=== PATIENT | female | born 1940 | race Caucasian/White ===

== ENCOUNTER → 2017-02-21 | Outpatient (CLI) | payer BC ==
[~2017-02-21] MED LIST: ALEN70TA2 PO; AMIT10TA6 PO; ASPI81TA21 PO; CELE100C PO; PHENADOZ; PRIM50TA29; VANC1INJ10 IV; ZINC GLUCONATE PO; [UNRECOGNIZED DRUG - CODE] PO
--- NOTE | 2017-02-22 12:52 | MAMMOGRAPHY REPORT ---
BILATERAL DIGITAL SCREENING MAMMOGRAM WITH CAD: 02/21/2017 CLINICAL HISTORY: Routine screening. Patient has no complaints. TECHNIQUE: Current study was also evaluated with a Computer Aided Detection (CAD) system. Bilateral CC and MLO views were obtained. COMPARISON: Comparison is made to exams dated: 02/21/2016 mammogram, 02/16/2015 mammogram, 4 mammogram, 02/12/2013 mammogram, 02/11/2012 mammogram, and 02/07/2011 mammogram - [facility]. BREAST COMPOSITION: The tissue of both breasts is heterogeneously dense, which may obscure small mas ses. FINDINGS: No suspicious masses, calcifications, or areas of architectural distortion are noted in ei ther breast. There has been no significant interval change compared to prior exams. Scattered bilater al benign-appearing calcifications are not significantly changed. IMPRESSION: ACR BI-RADS CATEGORY 2: BENIGN There is no mammographic evidence of malignancy. A 1 year screening mammogram is recommended. The pa tient will receive written notification of the results. Approximately 10% of breast cancers are not detected with mammography. A negative mammographic report should not delay biopsy if a clinically suggestive mass is present. Paula Molina M.D. /:02/21/2017 15:59:19 Naturopathic Oncology Provider: Heydi TREVINO(Larry)(Cathleen), [facility] letter sent: Normal 1/2 BI-RADS Code: ACR BI-RADS Category 2: Benign
== END | disposition home or self-care (01) ==
LOC: C.MAMM 14:59
PROVIDERS: ATTEND Family Medicine
DX: Z12.31 Encounter for screening mammogram for malignant neoplasm of breast (principal)

== ENCOUNTER 2017-03-20 12:47 | Emergency (ER) | payer BC ==
[2017-03-20] MEDS ORDERED: OXYC1TAB3 PO (13:26)
[2017-03-20] MEDS ORDERED: ZINC1CAP (13:26)
[2017-03-20] MEDS ORDERED: PHNS125 RE (13:26)
[2017-03-20] MEDS ORDERED: SODIUM CHLORIDE 0.9% 1000ML 1,000 ML IV STA (13:54)
[2017-03-20 14:23] LABS: BASO % 0.6 %; BASO ABS # 0.02 K/uL (0-0.2); HEMOGLOBIN 13.7 g/dL (12.0-16.0); IG# 0.01 K/uL (0.00-0.02); LYMPH ABS # 0.53 K/uL (1.2-3.4); MEAN CELL VOLUME 85.8 fL (80-100); MEAN CORPUSCULAR HEMOGLOBIN 29.4 pg (25-34); MEAN CORPUSCULAR HGB CONC 34.3 g/dl (32-36); MEAN PLATELET VOLUME 11.8 fL (7.4-10.4); MONO % 17.3 %; MONO ABS # 0.54 K/uL (0.11-0.59); NEUT % 64.8 %; NEUT ABS # 2.02 K/uL (1.4-6.5); PLATELET COUNT 109 K/uL (130-400); RED CELL DISTRIBUTION WIDTH CV 14.5 % (11.5-14.5); RED CELL DISTRIBUTION WIDTH SD 45.4 fL (36.4-46.3); WHITE BLOOD COUNT 3.12 K/uL (4.8-10.8)
[2017-03-20 14:28] LABS: PTT PATIENT 32.1 SECONDS (21.0-31.0)
[2017-03-20] MEDS ORDERED: OPTIRAY 320 IV PRN (14:30)
[2017-03-20 14:35] LABS: ALBUMIN 3.5 gm/dl (3.4-5.0); ALT/SGPT 39 U/L (12-78); BLOOD UREA NITROGEN 27 mg/dl (7-18); CALCIUM 9.1 mg/dl (8.5-10.1); CARBON DIOXIDE 24 mmol/L (21-32); CREATININE 1.07 mg/dl (0.60-1.20); GLUCOSE 97 mg/dl (70-99); LIPASE 238 U/L (73-393); POTASSIUM 3.8 mmol/L (3.5-5.1); SODIUM 136 mmol/L (136-145)
[2017-03-20 14:38] LABS: ALKALINE PHOSPHATASE 75 U/L (45-117); AST/SGOT 41 U/L (15-37)
[2017-03-20 15:03] VITALS: TEMP 36.6
--- NOTE | 2017-03-20 15:14 | DIAGNOSTIC IMAGING REPORT ---
(CHEST FOR PE) ANGIO WITH CT DOSE: 381.17 mGycm HISTORY: Chest pain dyspnea TECHNIQUE: Multiaxial CT images of the chest were performed following the intravenous administration of contrast to evaluate the pulmonary arteries. Maximal intensity projection images were also obtained. A dose lowering technique was utilized adhering to the principles of ALARA. COMPARISON STUDY: None FINDINGS: There is a normal caliber thoracic aorta with no evidence for dissection. There is no evidence for pulmonary embolus. No pleural effusions. No pneumothorax. The liver and spleen are unremarkable. No mediastinal or hilar lymphadenopathy. The central airways are patent. The lungs are clear. Moderate peribronchial wall thickening. IMPRESSION: 1. Study is negative for pulmonary embolus. 2. No focal infiltrate. 3. Moderate peribronchial thickening suggesting a component of bronchitis and/or lower airway inflammatory process. The above report was generated using voice recognition software. It may contain grammatical, syntax or spelling errors. Electronically signed by: Livan Rowell M.D. 03/20/2017 3:13 PM Dictated Date/Time: 03/20/2017 3:11 PM
[2017-03-20 15:21] LABS: INFLUENZA B ANTIGEN Neg for Influ B (NEG)
--- NOTE | 2017-03-20 15:30 | DIAGNOSTIC IMAGING REPORT ---
CT OF THE ABDOMEN AND PELVIS WITH CONTRAST CLINICAL HISTORY: Abdominal pain. Near-syncope. COMPARISON STUDY: None. TECHNIQUE: Following IV administration of 121 mL of Optiray-320, axial images of the abdomen and pelvis were obtained from the lung bases to the proximal femurs. Images were reviewed in the axial, sagittal, and coronal planes. IV contrast was administered without complication. A dose lowering technique was utilized adhering to the principles of ALARA. FINDINGS: The chest CT will be reported separately. 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 The spleen is mildly enlarged. The liver is not cirrhotic. The main, left and right portal veins are patent. A few subcentimeter hepatic lesions likely reflect cysts. There are numerous water attenuation renal lesions which reflect cysts. There are numerous subcentimeter renal lesions which are too small to characterize. Apparent collaterals within the left renal sinus are noted. There are multiple small left renal calculi. There is slight prominence of the left renal pelvis without hydronephrosis. Sensitivity for detection of ureteral calculi is diminished on this exam but no definite calculi are identified within the ureters. There is no peripancreatic infiltration. The adrenal glands are unremarkable. There is no evidence for a bowel obstruction. Evaluation is difficult given a paucity of intra-abdominal fat. Note is made of a hypodense peripheral calcified 2.4 cm abnormality within the left pelvic sidewall. This is adjacent to the left external iliac vein. This may be postsurgical. No suspicious osseous lesions are present. There is no ascites. No pneumatosis, free air or portal venous gas is present. IMPRESSION: 1. Paraesophageal varices and mild splenomegaly which raise the possibility of portal hypertension. Liver not cirrhotic by CT. Patent main, left and right portal veins. 2. No bowel obstruction. 3. Left-sided nephrolithiasis. Sensitivity for detection of ureteral calculi diminished but none identified. 4. Peripherally calcified hypodense 2.4 cm abnormality with the left pelvic sidewall. This is chronic and may be related to prior surgery. An old thrombosed aneurysm could appear similar. Electronically signed by: Alhaji Barfield M.D. 03/20/2017 3:28 PM Dictated Date/Time: 03/20/2017 3:14 PM
[2017-03-20 15:45] LABS: ISTAT CREATININE 1.1 mg/dl (0.6-1.3); ISTAT IONIZED CALCIUM 1.15 mmol/l (1.12-1.32); ISTAT POTASSIUM 3.9 mEq/L (3.3-5.0)
[2017-03-20 18:38] VITALS: BP 120/61; PULSE 88; O2SAT 99
--- NOTE | 2017-03-20 18:41 | EMERGENCY ROOM VISIT NOTE ---
History Report prepared by Lisset: Jovana Soto Under the Supervision of: Dr. Bhavesh Long M.D. First contact with patient: 13:36 Chief Complaint: FLU LIKE SX Stated Complaint: COLD/FLU History of Present Illness The patient is a 76 year old female who presents to the Emergency Room with complaints of persistent illness starting 3 days ago. The patient was sent to the ED by her doctor for IV fluids. The patient reports headache, abdominal pain , vomiting, and diarrhea over the past 3 days. She has been coughing and coughed up one clot of blood one time 2 days ago. She reports generalized weakness and body aches. She denies any chest pain, SOB, hematemesis, or bloody stools. She has a history of King's disease. Source of History: patient, family Onset: 3 days ago Position: other (global) Quality: other (illness) Timing: other (persistent) Associated Symptoms: + headache, + cough, + vomiting, + diarrhea, + weakness , No chest pain, No SOB, No hematochezia Review of Systems See HPI for pertinent positives and negatives. A total of ten systems were reviewed and were otherwise negative. Past Medical & Surgical Medical Problems: (1) Wilsons disease Family History Diabetes mellitus Heart disease Social History Smoking Status: Never Smoker Occupation Status: retired Current/Historical Medications Scheduled Amitriptyline Hcl (Elavil), 10 MG PO HS Aspirin Enteric Coated (Ecotrin Or Generic), 81 MG PO DAILY Promethazine HCl (Phenadoz), 25 MG RE Q6 Scheduled PRN Oxycodone Ir (Roxicodone Ir), 5 MG PO Q4 PRN for Severe Pain Miscellaneous Medications Zinc Sulfate (Zinc Sulfate), Unknown Dose Allergies Coded Allergies: No Known Allergies (Unverified , 03/20/17) Physical Exam Vital Signs Date Time Temp Pulse Resp B/P (MAP) Pulse Ox O2 Delivery O2 Flow Rate FiO2 03/20/17 18:38 88 20 120/61 99 03/20/17 16:59 86 16 140/66 96 Room Air 03/20/17 16:02 79 16 127/59 97 Room Air 03/20/17 15:03 36.6 88 20 137/56 99 Room Air 03/20/17 12:52 36.5 98 20 148/54 94 Room Air Physical Exam Physical Exam GENERAL: She is oriented to person, place, and time. She appears well- developed and well-nourished. She does not appear distressed. ____ HENT: Exam performed. Head: Normocephalic and atraumatic. Right Ear: External ear normal. No mastoid tenderness. Left Ear: External ear normal. No mastoid tenderness. Mouth/Throat: The oropharynx is clear and moist. No trismus in the jaw. No dental abscesses or uvula swelling. No oropharyngeal exudate or tonsillar abscesses. ____ EYES: Conjunctivae and EOM are normal. Aliza-Deepali present. No AV nicking or papilledema bilaterally. Pupils are equal, round, and reactive to light. Right eye exhibits no discharge. Left eye exhibits no discharge. No scleral icterus. ____ NECK: Normal range of motion. Neck supple. No JVD present. No spinous process tenderness present. No carotid bruit present. No rigidity. No tracheal deviation and normal range of motion present. No Brudzinski's sign and no Kernig 's sign noted. ____ CV: Normal rate, regular rhythm, normal heart sounds and intact distal pulses. There is no peripheral edema. Palpable radial pulses bue. ____ PULM/CHEST: Effort normal and breath sounds normal. No respiratory distress. No stridor. She has no wheezes. She has no rales. Chest Wall: She exhibits no tenderness. ____ ABD: The abdomen is soft. Diffuse tenderness to palpation. No rebound. MUSC/SKEL: Normal range of motion. There is no peripheral edema, tenderness or deformity. LYMPH: No cervical adenopathy. ____ NEURO: She is alert and oriented to person, place, and time. She has normal strength. No cranial nerve deficit or sensory deficit. Coordination and gait normal. GCS eye subscore is 4. GCS verbal subscore is 5. GCS motor subscore is 6. cerbellar tests wnl. ____ SKIN: Skin is warm and dry. She is not diaphoretic. ____ PSYCH: She has a normal mood and affect. Her behavior is normal. Judgment and thought content normal. ____ Medical Decision & Procedures ER Provider Diagnostic Interpretation: Radiology results as stated below per my review and radiologist interpretation: CT OF THE ABDOMEN AND PELVIS WITH CONTRAST CLINICAL HISTORY: Abdominal pain. Near-syncope. COMPARISON STUDY: None. TECHNIQUE: Following IV administration of 121 mL of Optiray-320, axial images of the abdomen and pelvis were obtained from the lung bases to the proximal femurs. Images were reviewed in the axial, sagittal, and coronal planes. IV contrast was administered without complication. A dose lowering technique was utilized adhering to the principles of ALARA. FINDINGS: The chest CT will be reported separately. 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 The spleen is mildly enlarged. The liver is not cirrhotic. The main, left and right portal veins are patent. A few subcentimeter hepatic lesions likely reflect cysts. There are numerous water attenuation renal lesions which reflect cysts. There are numerous subcentimeter renal lesions which are too small to characterize. Apparent collaterals within the left renal sinus are noted. There are multiple small left renal calculi. There is slight prominence of the left renal pelvis without hydronephrosis. Sensitivity for detection of ureteral calculi is diminished on this exam but no definite calculi are identified within the ureters. There is no peripancreatic infiltration. The adrenal glands are unremarkable. There is no evidence for a bowel obstruction. Evaluation is difficult given a paucity of intra-abdominal fat. Note is made of a hypodense peripheral calcified 2.4 cm abnormality within the left pelvic sidewall. This is adjacent to the left external iliac vein. This may be postsurgical. No suspicious osseous lesions are present. There is no ascites. No pneumatosis, free air or portal venous gas is present. IMPRESSION: 1. Paraesophageal varices and mild splenomegaly which raise the possibility of portal hypertension. Liver not cirrhotic by CT. Patent main, left and right portal veins. 2. No bowel obstruction. 3. Left-sided nephrolithiasis. Sensitivity for detection of ureteral calculi diminished but none identified. 4. Peripherally calcified hypodense 2.4 cm abnormality with the left pelvic sidewall. This is chronic and may be related to prior surgery. An old thrombosed aneurysm could appear similar. Electronically signed by: Alhaji Barfield M.D. 03/20/2017 3:28 PM Dictated Date/Time: 03/20/2017 3:14 PM (CHEST FOR PE) ANGIO WITH CT DOSE: 381.17 mGycm HISTORY: Chest pain dyspnea TECHNIQUE: Multiaxial CT images of the chest were performed following the intravenous administration of contrast to evaluate the pulmonary arteries. Maximal intensity projection images were also obtained. A dose lowering technique was utilized adhering to the principles of ALARA. COMPARISON STUDY: None FINDINGS: There is a normal caliber thoracic aorta with no evidence for dissection. There is no evidence for pulmonary embolus. No pleural effusions. No pneumothorax. The liver and spleen are unremarkable. No mediastinal or hilar lymphadenopathy. The central airways are patent. The lungs are clear. Moderate peribronchial wall thickening. IMPRESSION: 1. Study is negative for pulmonary embolus. 2. No focal infiltrate. 3. Moderate peribronchial thickening suggesting a component of bronchitis and/or lower airway inflammatory process. The above report was generated using voice recognition software. It may contain grammatical, syntax or spelling errors. Electronically signed by: Livan Rowell M.D. 03/20/2017 3:13 PM Dictated Date/Time: 03/20/2017 3:11 PM Laboratory Results 03/20/17 14:10 Red Blood Count 4.66, Mean Corpuscular Volume 85.8, Mean Corpuscular Hemoglobin 29.4, Mean Corpuscular Hemoglobin Concent 34.3, Mean Platelet Volume 11.8, Neutrophils (%) (Auto) 64.8, Lymphocytes (%) (Auto) 17.0, Monocytes (%) (Auto) 17.3, Eosinophils (%) (Auto) 0.0, Basophils (%) (Auto) 0.6, Neutrophils # (Auto ) 2.02, Lymphocytes # (Auto) 0.53, Monocytes # (Auto) 0.54, Eosinophils # (Auto ) 0.00, Basophils # (Auto) 0.02 03/20/17 14:10 Test 03/20/17 13:25 03/20/17 14:10 03/20/17 14:15 03/20/17 14:19 Influenza Type A Antigen Neg for Influ A (NEG) Influenza Type B Antigen Neg for Influ B (NEG) White Blood Count 3.12 K/uL (4.8-10.8) Red Blood Count 4.66 M/uL (4.2-5.4) Hemoglobin 13.7 g/dL (12.0-16.0) Hematocrit 40.0 % (37-47) Mean Corpuscular Volume 85.8 fL (80-100) Mean Corpuscular Hemoglobin 29.4 pg (25-34) Mean Corpuscular Hemoglobin Concent 34.3 g/dl (32-36) Platelet Count 109 K/uL (130-400) Mean Platelet Volume 11.8 fL (7.4-10.4) Neutrophils (%) (Auto) 64.8 % Lymphocytes (%) (Auto) 17.0 % Monocytes (%) (Auto) 17.3 % Eosinophils (%) (Auto) 0.0 % Basophils (%) (Auto) 0.6 % Neutrophils # (Auto) 2.02 K/uL (1.4-6.5) Lymphocytes # (Auto) 0.53 K/uL (1.2-3.4) Monocytes # (Auto) 0.54 K/uL (0.11-0.59) Eosinophils # (Auto) 0.00 K/uL (0-0.5) Basophils # (Auto) 0.02 K/uL (0-0.2) RDW Standard Deviation 45.4 fL (36.4-46.3) RDW Coefficient of Variation 14.5 % (11.5-14.5) Immature Granulocyte % (Auto) 0.3 % Immature Granulocyte # (Auto) 0.01 K/uL (0.00-0.02) Prothrombin Time 10.7 SECONDS (9.0-12.0) Prothromb Time International Ratio 1.0 (0.9-1.1) Activated Partial Thromboplast Time 32.1 SECONDS (21.0-31.0) Partial Thromboplastin Ratio 1.2 Estimated GFR () 57.6 Estimated GFR (Non- 49.7 BUN/Creatinine Ratio 25.6 (10-20) Calcium Level 9.1 mg/dl (8.5-10.1) Magnesium Level 2.2 mg/dl (1.8-2.4) Total Bilirubin 0.4 mg/dl (0.2-1) Aspartate Amino Transf (AST/SGOT) 41 U/L (15-37) Alanine Aminotransferase (ALT/SGPT) 39 U/L (12-78) Alkaline Phosphatase 75 U/L (45-117) Troponin I < 0.015 ng/ml (0-0.045) Total Protein 7.0 gm/dl (6.4-8.2) Albumin 3.5 gm/dl (3.4-5.0) Globulin 3.5 gm/dl (2.5-4.0) Albumin/Globulin Ratio 1.0 (0.9-2) Lipase 238 U/L (73-393) Bedside Lactic Acid Venous 1.24 mmol/L (0.90-1.70) Bedside Hemoglobin 13.6 g/dl (12.0-16.0) Bedside Hematocrit 40 % (37-47) Bedside Sodium 138 mEq/L (135-144) Bedside Potassium 3.9 mEq/L (3.3-5.0) Bedside Chloride 102 mEq/L (101-112) Bedside Total CO2 24 mEq/l (24-31) Anion Gap 16.0 mmol/L (16-25) Bedside Blood Urea Nitrogen 29 mg/dl (7-18) Bedside Creatinine 1.1 mg/dl (0.6-1.3) Bedside Glucose (other) 98 mg/dl (70-99) Bedside Ionized Calcium (Jarad) 1.15 mmol/l (1.12-1.32) Test 03/20/17 15:30 Urine Color YELLOW Urine Appearance CLEAR (CLEAR) Urine pH 5.0 (4.5-7.5) Urine Specific [place] > 1.045 (1.000-1.030) Urine Protein TRACE (NEG) Urine Glucose (UA) NEG (NEG) Urine Ketones 1+ (NEG) Urine Occult Blood TRACE (NEG) Urine Nitrite NEG (NEG) Urine Bilirubin NEG (NEG) Urine Urobilinogen NEG (NEG) Urine Leukocyte Esterase TRACE (NEG) Urine WBC (Auto) 5-10 /hpf (0-5) Urine RBC (Auto) 0-4 /hpf (0-4) Urine Hyaline Casts (Auto) 5-10 /lpf (0-5) Urine Epithelial Cells (Auto) >30 /lpf (0-5) Urine Bacteria (Auto) NEG (NEG) Urine Pathogenic Casts /lpf (0) Laboratory results reviewed by me Medications Administered Medications (Trade) Dose Ordered Sig/Teena Route Start Time Stop Time Status Last Admin Dose Admin Sodium Chloride 1,000 ml @ 999 mls/hr Q1H1M STAT IV 03/20/17 13:54 03/20/17 14:54 DC 03/20/17 14:13 999 MLS/HR ECG Indication: weakness Rate (beats per minute): 72 Rhythm: sinus rhythm Findings: PVC, no acute ischemic change, other (WV, QRS, and QTc intervals within normal limits, no ST elevation or ST depression) Change: Patient's electrocardiogram per my interpretation. ED Course 1349: The patient was evaluated in room C4. A complete history and physical exam was performed. 1354: NSS 1000 ml @ 999 mls/hr IV. 1647: I discussed the patient's case Dr. Beckwith [facility] internal medicine. She states that the patient was nauseous, but did not say anything about hemoptysis. Dr. Beckwith states she only sent the patient to get IV fluids. Given that her labs and vitals are stable, she can follow up as an outpatient. 1730: DISCHARGE - Plan of care discussed with patient and questions answered. The patient was given both verbal and printed discharge instructions. The patient verbalized understanding and ability to comply. The patient is to seek outpatient follow up as noted in the discharge instructions. The patient verbalized understanding and ability to comply. The patient is discharged in stable condition. The patient was instructed to return for worsening symptoms. Medical Decision Vital signs stable. Physical exam within normal limits. Imaging within normal limits. Labs show mild dehydration. Patient was treated with bolus of fluids 1 L. I discussed the patient's case Dr. Beckwith [facility] internal medicine. She states that the patient was nauseous, but did not say anything about hemoptysis. Dr. Beckwith states she only sent the patient to get IV fluids. Given that her labs and vitals are otherwise stable, she can follow up as an outpatient. DISCHARGE - Plan of care discussed with patient and questions answered. The patient was given both verbal and printed discharge instructions. The patient verbalized understanding and ability to comply. The patient is to seek outpatient follow up as noted in the discharge instructions. The patient verbalized understanding and ability to comply. The patient is discharged in stable condition. The patient was instructed to return for worsening symptoms. Medication Reconcilliation Current Medication List: was personally reviewed by me Blood Pressure Screening Patient's blood pressure: Elevated blood pressure Blood pressure disposition: Elevated BP felt to be situational Consults Time Called: 1640 Consulting Physician: Dr. Beckwith [facility] internal medicine Returned Call: 1647 I discussed the patient's case her. She states that the patient was nauseous, but did not say anything about hemoptysis. Given that her labs and vitals are stable, she can follow up as an outpatient. Impression Primary Impression: Viral syndrome Additional Impressions: Near syncope Hemoptysis Scribe Attestation The scribe's documentation has been prepared under my direction and personally reviewed by me in its entirety. I confirm that the note above accurately reflects all work, treatment, procedures, and medical decision making performed by me. The chart was completed utilizing [employer] Speech voice recognition software. Grammatical errors, random word insertions, pronoun errors, and incomplete sentences are an occasional consequence of this system due to software limitations, ambient noise, and hardware issues. Any formal questions or concerns about the content, text, or information contained within the body of this dictation should be directly addressed to the physician for clarification. Departure Information Dispostion Home / Self-Care Referrals Nicole BECKWITH M.D. (PCP) Forms HOME CARE DOCUMENTATION FORM, IMPORTANT VISIT INFORMATION Patient Instructions ED Hemoptysis, ED Near Syncope Unkn, ED Viral Syndrome, [facility] Problem Qualifiers
== END 2017-03-20 18:20 | disposition home or self-care (01) ==
LOC: C.EDB 12:48 → C.EDC 18:20
DX: B34.9 Viral infection, unspecified (principal); R04.2 Hemoptysis; E86.0 Dehydration; R55 Syncope and collapse; E83.01 Wilson's disease; Z83.3 Family history of diabetes mellitus; Z79.82 Long term (current) use of aspirin; Z79.899 Other long term (current) drug therapy

== ENCOUNTER → 2017-04-30 | Day surgery (SDC) | payer BC ==
[2017-04-24 14:39] VITALS: BMI 19.0
[~2017-04-30] VITALS: Ht 144.8 cm; Wt 40.9 kg
[~2017-04-30] MED LIST changes: -ALEN70TA2 PO; +AMOX500C3 PO; +ASPCH81X PO; -ASPI81TA21 PO; -CELE100C PO; +CLR10 PO; +LIDOCAINE HCL 2% 2 ML VIAL (20MG/ML) ONE; +OXYC1TAB3 PO; -PHENADOZ; -PRIM50TA29; +PRIM50TA29 PO; +PRIM50TA34 PO; +PROM25SU28 PR; +PROPOFOL IV EMULSION 10 MG/ML 20 ML VIAL IV ONE; -VANC1INJ10 IV; -ZINC GLUCONATE PO; +ZINC1CAP PO; -[UNRECOGNIZED DRUG - CODE] PO
[2017-04-30 09:50] VITALS: TEMP 36.4
[2017-04-30 09:51] VITALS: Ht 144.8 cm; Wt 40.9 kg
--- NOTE | 2017-04-30 10:32 | Endo History and Physical ---
History & Physical Date of Service: Apr 30, 2017. Chief Complaint: ABDOMINAL PAIN Referring Physician: DR. REKHA PEDROZA History of Present Illness abdominal pain Past Surgical History Hx Cardiac Surgery: No Hx Internal Defibrillator: No Hx Pacemaker: No Hx Abdominal Surgery: Yes Hx of Implantable Prosthesis: No Hx Cancer Surgery: Yes (NOSE/FACE EXCISION, HYSTERECTOMY) Hx Thoracic Surgery: No Hx Orthopedic: Yes (RT TKA) Hx Urinary Tract Surgery: No Family History None Social History Smoking Status: Never Smoker Hx Substance Use: No Hx Alcohol Use: No Allergies Coded Allergies: No Known Allergies (Verified , 04/30/17) Current Medications Reported Home Medications Medications Dose Route/Sig Max Daily Dose Days Date Category Phenergan Suppository (Promethazine HCl) 25 Mg Supp 25 Mg OR Q6H PRN 04/24/17 Reported Roxicodone Ir (Oxycodone HCl) 5 Mg Tab 5 Mg PO Q4H PRN 04/24/17 Reported Amoxil (Amoxicillin) 500 Mg Cap 500 Mg PO DIRECTED PRN 04/24/17 Reported Aspirin Chewable (Aspirin) 81 Mg Chew 81 Mg PO QPM 04/24/17 Reported Mysoline (Primidone) 50 Mg Tab 50 Mg PO HS 04/24/17 Reported Mysoline (Primidone) 50 Mg Tab 25 Mg PO QAM 04/24/17 Reported Zinc Sulfate 220 Mg Cap 220 Mg PO BID 04/24/17 Reported Claritin (Loratadine) 10 Mg Tab 10 Mg PO QAM 04/24/17 Reported Elavil (Amitriptyline Hcl) 10 Mg Tab 10 Mg PO HS 07/04/11 Reported Vital Signs Weight (Kilograms): 40.91 Height (Feet): 4 Height (Inches): 9 Date Time Temp Pulse Resp B/P (MAP) Pulse Ox O2 Delivery O2 Flow Rate FiO2 04/30/17 09:50 36.4 78 18 144/69 (94) 98 Room Air Physical Exam General Appearance: no apparent distress Respiratory/Chest: Auscultation: breath sounds normal Cardiovascular: Heart Auscultation: RRR Abdomen: Inspection & Palpation: soft Assessment and Plan abdominal pain, dysphagia - EGD
--- NOTE | 2017-04-30 11:30 | GI REPORT ---
Procedure Date: 04/30/2017 10:36 AM Procedure: Upper GI endoscopy Indications: Abdominal pain, Dysphagia Medicines: See the Anesthesia note for documentation of the administered medications Complications: No immediate complications. Estimated Blood Loss: Estimated blood loss: none. Procedure: Pre-Anesthesia Assessment: - ASA Grade Assessment: III - A patient with severe systemic disease. After obtaining informed consent, the endoscope was passed under direct vision. Throughout the procedure, the patient's blood pressure, pulse, and oxygen saturations were monitored continuously. The Scope was introduced through the mouth, and advanced to the second part of duodenum. The upper GI endoscopy was accomplished without difficulty. The patient tolerated the procedure well. Findings: There were four columns of grade 1 varices at the GE junction. Otherwise, the examined esophagus was normal; no evidence of esophageal obstruction was seen. The stomach was normal. The examined duodenum was normal. A guidewire was placed and the scope was withdrawn. Dilation was performed at the gastroesophageal junction with a Savary dilator with no resistance at 16 mm. Impression: - Small GE junction varices. No esophageal obstruction. - Dilation performed at the gastroesophageal junction. - No specimens collected. Recommendation: - Discharge patient to home. Anup Herrera M.D. Anup Herrera MD 04/30/2017 11:29:53 AM This report has been signed electronically. Note Initiated On: 04/30/2017 10:36 AM I attest to the content of the Intraoperative Record and orders documented therein, exceptions below
[2017-04-30 11:40] VITALS: BP 129/66; PULSE 70; O2SAT 98
--- NOTE | 2017-04-30 11:40 | Anesthesiology Progress Note ---
Anesthesia Post Op Note Date & Time Apr 30, 2017 at 11:40 Vital Signs Pain Intensity: 0 Vital Signs Past 12 Hours Date Time Temp Pulse Resp B/P (MAP) Pulse Ox O2 Delivery O2 Flow Rate FiO2 04/30/17 11:25 70 16 130/78 (95) 98 Room Air 04/30/17 11:12 76 16 124/61 (82) 98 Room Air 04/30/17 09:50 36.4 78 18 144/69 (94) 98 Room Air Notes Mental Status: alert / awake / arousable, participated in evaluation Pt Amnestic to Procedure: Yes Nausea / Vomiting: adequately controlled Pain: adequately controlled Airway Patency, RR, SpO2: stable & adequate BP & HR: stable & adequate Hydration State: stable & adequate Anesthetic Complications: no major complications apparent
--- NOTE | 2017-04-30 12:47 | Discharge Instructions ---
Endoscopy Patient Instructions Date / Procedure(s) Performed Apr 30, 2017. EGD Allergy Information Coded Allergies: No Known Allergies (Verified , 04/30/17) Discharge Date / Findings Apr 30, 2017. Unremarkable esophagus, dilation done Provider Instructions Activity Restrictions - No exercising or heavy lifting for 24 hours. - Do not drink alcohol the day of the procedure. - Do not drive a car or operate machinery until the day after the procedure. - Do not make any important decisions or sign important papers in 24 hours after the procedure. Following Day: - Return to full activity which may include returning to work/school. Diet Start your diet with liquids and light foods (jello, soup, juice, toast). Then eat your usual diet if not nauseated. Treatment For Common After Affects For mild abdominal pain, bloating, or excessive gas: - Rest - Eat lightly - Lie on right side Follow-Up Information Follow-up with DR. REKHA PEDROZA as scheduled Anesthesia Information What You Should Know You have had a procedure that required some medicine to reduce anxiety and discomfort. This treatment is called moderate sedation. After receiving the treatment, you may be sleepy, but you will be able to breathe on your own. The effects of the treatment may last for several hours. Follow these instructions along with Activity/Diet recommendations noted above: * Do NOT do anything where dizziness or clumsiness would be dangerous. * Rest quietly at home today, then you can be up and about tomorrow. * Have a responsible person stay with you the rest of today. * You may have had an I.V. today. If so, you may take the dressing off later today. Recommendations Call your doctor if: * Trouble breathing * Continuous vomiting for more than 24 hours * Temperature above 101 degrees * Severe abdominal pain or bloating * Pain not relieved by pain medicine ordered * There is increased drainage or redness from any incision * A large amount of rectal bleeding greater than 2-3 tablespoons. (If you had a polyp/s removed or have hemorrhoids, a small amount of blood - from the rectum is to be expected.) * You have any unanswered questions or concerns. IN THE EVENT OF A SERIOUS EMERGENCY, GO TO THE NEAREST EMERGENCY ROOM Your discharge instructions were prepared by provider Anup Ramos. Patient Instructions Signature Page Gege Ojeda Patient (or Guardian) Signature/Date: I have read and understand the instructions given to me by my caregivers. Caregiver/RN/Doctor Signature/Date: The above-named patient and/or guardian has received patient instructions on this date. + Original Patient Signature Page (only) stays with chart. Please make copy for patient.
== END | disposition home or self-care (01) ==
LOC: C.GI 09:19
PROVIDERS: ATTEND Internal Medicine Gastroenterology
DX: R13.10 Dysphagia, unspecified (principal); R10.9 Unspecified abdominal pain; I85.00 Esophageal varices without bleeding; K22.70 Barrett's esophagus without dysplasia; K76.6 Portal hypertension; Z90.710 Acquired absence of both cervix and uterus; Z96.651 Presence of right artificial knee joint; Z79.82 Long term (current) use of aspirin